=== PATIENT | female | born 2005 | race Caucasian/White ===

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

== ENCOUNTER 2023-03-03 02:39 | Emergency (ER) | payer BC, OTHER ==
[~2023-03-03] VITALS: Ht 157.5 cm; Wt 49.9 kg
[2023-03-03 02:45] VITALS: TEMP 98
[2023-03-03 05:41] VITALS: BP 108/73; O2SAT 99
== END 2023-03-03 05:41 | disposition home or self-care (01) ==
LOC: ER 02:40
DX: Z20.822 Contact with and (suspected) exposure to COVID-19 (principal); Z79.899 Other long term (current) drug therapy
CPT/HCPCS: 99283; 87426; 87804 ×2; 87880; 87420; A6403; C9803; 86403-TC

== ENCOUNTER 2023-09-29 00:29 | Emergency (ER) | payer BC ==
[~2023-09-29] VITALS: Ht 157.5 cm; Wt 54.4 kg
[2023-09-29 00:31] VITALS: BP 115/62; TEMP 98.1
[2023-09-29] MEDS ORDERED: DICYCLOMINE HCL 10 MG CAPSULE PO ONE ×2 (01:03→01:15)
[2023-09-29] MEDS: DICYCLOMINE HCL 10 MG CAPSULE PO ONE (01:18)
[2023-09-29] MEDS ORDERED: DICY10CA37 PO (02:37)
[2023-09-29 02:47] VITALS: O2SAT 99
== END 2023-09-29 02:48 | disposition home or self-care (01) ==
LOC: ER 00:48
DX: R10.9 Unspecified abdominal pain (principal); Z79.52 Long term (current) use of systemic steroids

== ENCOUNTER 2023-10-19 00:41 | Emergency (ER) | payer BC ==
[~2023-10-19] VITALS: Ht 157.5 cm; Wt 52.2 kg
[~2023-10-19 00:41] MED LIST changes: +DICY10CA37 PO
[2023-10-19 01:48] LABS: BASOPHILS # (AUTO) 0.1 K/uL (0.0-0.2); BASOPHILS % (AUTO) 1.1 % (0.0-2.0); EOSINOPHILS # (AUTO) 0.2 K/uL (0.0-0.7); EOSINOPHILS % (AUTO) 2.3 % (0.0-6.0); HEMATOCRIT 43 % (33-45); HEMOGLOBIN 14.3 g/dL (11.5-14.8); LYMPHOCYTES # (AUTO) 3.9 K/uL (0.8-4.8); LYMPHOCYTES % (AUTO) 49.1 % (20.0-44.0); MEAN CORPUSCULAR HEMOGLOBIN 30 PG (26.0-33.0); MEAN CORPUSCULAR HGB CONC 33 g/dl (31.0-36.0); MEAN CORPUSCULAR VOLUME 91 fL (82-100); MONOCYTES # (AUTO) 0.5 K/uL (0.1-1.30); MONOCYTES % (AUTO) 6.4 % (2.0-12.0); NEUTROPHILS # (AUTO) 3.3 K/uL (1.8-8.9); NEUTROPHILS % (AUTO) 41.1 % (43.0-81.0); PLATELET COUNT (AUTO) 238 K/uL (150-450); RED BLOOD CELL COUNT(AUTO) 4.73 MIL/uL (4.0-5.2); RED CELL DISTRIBUTION WIDTH 13.1 % (11.5-15.0); WHITE BLOOD COUNT (AUTO) 7.9 K/uL (4.3-11.0)
[2023-10-19 02:01] LABS: APPEARANCE,URINE CLEAR (CLEAR); BILIRUBIN,URINE NEGATIVE (NEGATIVE); BLOOD, URINE NEGATIVE Ery/uL (NEGATIVE); COLOR,URINE YELLOW (YELLOW); KETONES,URINE NEGATIVE (NEGATIVE); LEUKOCYTE ESTERASE ,URINE NEGATIVE (NEGATIVE); NITRITE, URINE NEGATIVE (NEGATIVE); PH,URINE 5.5 (5.0-8.0); PROTEIN,URINE NEGATIVE (NEGATIVE); UGLUCOSE NEGATIVE (NEGATIVE); UROBILINOGEN,URINE 0.2 EU/dL (0.2)
[2023-10-19 02:02] LABS: PREGNANCY TEST URINE QUAL NEGATIVE (NEGATIVE)
[2023-10-19 02:09] LABS: CALCIUM, SERUM 9.2 mg/dL (8.5-10.1); CREATININE 0.7 mg/dL (0.6-1.3); POTASSIUM 3.2 mmol/L (3.5-5.1)
[2023-10-19 02:14] LABS: ALBUMIN 3.7 g/dL (3.4-5.0); BILIRUBIN,DIRECT 0.1 mg/dL (0.0-0.2); BILIRUBIN,TOTAL 0.4 mg/dL (0.2-1.0); TOTAL PROTEIN, SERUM 7.4 g/dL (6.4-8.2)
[2023-10-19 04:20] VITALS: BP 116/72; TEMP 98; O2SAT 99
[2023-10-21 09:07] LABS: CHLAMYDIA TRACHOMATIS NAA Negative (Negative); NEISSERIA GONORRHOEAE NAA Negative (Negative)
== END 2023-10-19 05:19 | disposition home or self-care (01) ==
LOC: ER 00:43
DX: R10.30 Lower abdominal pain, unspecified (principal); R10.2 Pelvic and perineal pain
CPT/HCPCS: 36415; 76856-TC; 80048-TC; 80076-TC; 83690-TC; 84702-TC; 84703-TC; 85025-TC; 87086-TC; 87491; 87591

== ENCOUNTER → 2024-02-24 | Outpatient (CLI) | payer BC ==
[2024-02-24 09:55] LABS: APPEARANCE,URINE CLEAR (CLEAR); BILIRUBIN,URINE NEGATIVE (NEGATIVE); BLOOD, URINE NEGATIVE Ery/uL (NEGATIVE); COLOR,URINE YELLOW (YELLOW); KETONES,URINE NEGATIVE (NEGATIVE); LEUKOCYTE ESTERASE ,URINE NEGATIVE (NEGATIVE); NITRITE, URINE NEGATIVE (NEGATIVE); PROTEIN,URINE NEGATIVE (NEGATIVE); UGLUCOSE NEGATIVE (NEGATIVE); UROBILINOGEN,URINE 0.2 EU/dL (0.2)
[2024-02-24 09:56] LABS: BASOPHILS # (AUTO) 0.1 K/uL (0.0-0.2); BASOPHILS % (AUTO) 0.8 % (0.0-2.0); EOSINOPHILS # (AUTO) 0.2 K/uL (0.0-0.7); EOSINOPHILS % (AUTO) 2.5 % (0.0-6.0); HEMATOCRIT 43 % (33-45); HEMOGLOBIN 14.4 g/dL (11.5-14.8); LYMPHOCYTES # (AUTO) 2.7 K/uL (0.8-4.8); LYMPHOCYTES % (AUTO) 37.1 % (20.0-44.0); MEAN CORPUSCULAR HEMOGLOBIN 30 PG (26.0-33.0); MEAN CORPUSCULAR HGB CONC 34 g/dl (31.0-36.0); MEAN CORPUSCULAR VOLUME 90 fL (82-100); MONOCYTES # (AUTO) 0.5 K/uL (0.1-1.30); MONOCYTES % (AUTO) 6.8 % (2.0-12.0); NEUTROPHILS # (AUTO) 3.8 K/uL (1.8-8.9); NEUTROPHILS % (AUTO) 52.8 % (43.0-81.0); PLATELET COUNT (AUTO) 229 K/uL (150-450); RED BLOOD CELL COUNT(AUTO) 4.74 MIL/uL (4.0-5.2); RED CELL DISTRIBUTION WIDTH 12.9 % (11.5-15.0); WHITE BLOOD COUNT (AUTO) 7.2 K/uL (4.3-11.0)
[2024-02-24 13:00] LABS: ALBUMIN 4.1 g/dL (3.4-5.0); BILIRUBIN,TOTAL 0.4 mg/dL (0.2-1.0); CALCIUM, SERUM 8.7 mg/dL (8.5-10.1); CREATININE 0.9 mg/dL (0.6-1.3); POTASSIUM 3.7 mmol/L (3.5-5.1); TOTAL PROTEIN, SERUM 7.5 g/dL (6.4-8.2)
[2024-02-24 13:59] LABS: HIV-1 p24 ANTIGEN NON REACTIVE (NONREACTIVE); HIV-1/2 ANTIBODY NON REACTIVE (NONREACTIVE)
[2024-02-24 22:19] LABS: THYROID STIMULATING HORMONE 4.205 uIU/mL (0.358-3.74)
[2024-02-25 09:07] LABS: RAPID PLASMA REAGIN QUAL. Non Reactive (Non Reactive)
[2024-02-25 17:09] LABS: CHLAMYDIA TRACHOMATIS NAA Negative (Negative); NEISSERIA GONORRHOEAE NAA Negative (Negative)
[2024-02-28 00:15] LABS: FOLIC ACID 14.4 ng/mL (>3.0); VIT D, 25-HYDROXY 21.4 ng/mL (30.0-100.0)
== END | disposition home or self-care (01) ==
LOC: LAB 09:02
PROVIDERS: ATTEND Legal Medicine
DX: Z11.3 Encounter for screening for infections with a predominantly sexual mode of transmission (principal); E11.9 Type 2 diabetes mellitus without complications; E03.9 Hypothyroidism, unspecified; D64.9 Anemia, unspecified; R53.1 Weakness; I10 Essential (primary) hypertension
CPT/HCPCS: 36415; 80053-TC; 80061-TC; 82306; 82607-TC; 82728-TC; 83540-TC; 84439-TC; 84443-TC; 85025-TC; 86592; 86593; 86803; 87086-TC; 87491; 87591; 87806

== ENCOUNTER 2024-06-06 01:22 | Emergency (ER) | payer BC ==
[~2024-06-06] VITALS: Ht 157.5 cm; Wt 51.3 kg
[~2024-06-06 01:22] MED LIST changes: +CEPH-570 PO
[2024-06-06 01:31] VITALS: BP 122/74; TEMP 98.6; O2SAT 99
[2024-06-06 02:12] LABS: APPEARANCE,URINE CLOUDY (CLEAR); BILIRUBIN,URINE 1+ (NEGATIVE); BLOOD, URINE 3+ Ery/uL (NEGATIVE); COLOR,URINE YELLOW (YELLOW); KETONES,URINE TRACE mg/dL (NEGATIVE); LEUKOCYTE ESTERASE ,URINE 1+ (NEGATIVE); NITRITE, URINE POSITIVE (NEGATIVE); PROTEIN,URINE 3+ mg/dl (NEGATIVE); UGLUCOSE NEGATIVE (NEGATIVE)
[2024-06-06] MEDS ORDERED: PHENAZOPYRIDINE HCL 200 MG TABLET ONE (02:17)
[2024-06-06] MEDS: PHENAZOPYRIDINE HCL 200 MG TABLET PO ONE (02:17)
[2024-06-06] MEDS ORDERED: NITR100C6 PO (02:35)
[2024-06-06] MEDS ORDERED: FLUC150T PO (02:36)
[2024-06-06] MEDS ORDERED: NITROFURANTOIN/MONOHYDRATE MACROCRYSTALS 100 MG CAPSULE ONE (02:36)
[2024-06-06] MEDS ORDERED: PHEN-705 PO (02:36)
[2024-06-06] MEDS: NITROFURANTOIN/MONOHYDRATE MACROCRYSTALS 100 MG CAPSULE PO ONE (02:36)
[2024-06-06] MEDS ORDERED: CEPH500C2 PO (02:36)
[2024-06-06 02:38] LABS: ADD URINE CULTURE YES; BACTERIA,URINE Few /HPF (None Seen); RBC,URINE 51-80 /HPF (0-2)
[2024-06-06 02:46] LABS: PREGNANCY TEST URINE QUAL NEGATIVE (NEGATIVE)
== END 2024-06-06 02:52 | disposition home or self-care (01) ==
LOC: ER 01:24
DX: N39.0 Urinary tract infection, site not specified (principal); R10.30 Lower abdominal pain, unspecified; Z79.52 Long term (current) use of systemic steroids
CPT/HCPCS: 81001; 84703-TC; 87086-TC; 87186-TC

== ENCOUNTER 2024-06-11 04:12 | Emergency (ER) | payer BC ==
[~2024-06-11] VITALS: Ht 157.5 cm; Wt 54.0 kg
[~2024-06-11 04:12] MED LIST changes: +CEPH500C2 PO; +FLUC150T PO; +NITR100C6 PO; +PHEN-705 PO
[2024-06-11] MEDS ORDERED: ONDANSETRON HCL/PF 4 MG/2 ML VIAL ONE ×2 (04:27→05:40)
[2024-06-11] MEDS ORDERED: KETOROLAC TROMETHAMINE INJ 30 MG/ML VIAL ONE (04:27)
[2024-06-11] MEDS: IV NS 0.9% 1,000 ML BAG IV ONE (04:39)
[2024-06-11] MEDS: KETOROLAC TROMETHAMINE 15 MG/ML VIAL IV ONE (04:40)
[2024-06-11] MEDS: ONDANSETRON HCL/PF 4 MG/2 ML VIAL IVP ONE (04:40)
[2024-06-11 04:43] LABS: BASOPHILS # (AUTO) 0.1 K/uL (0.0-0.2); BASOPHILS % (AUTO) 0.6 % (0.0-2.0); EOSINOPHILS # (AUTO) 0.1 K/uL (0.0-0.7); EOSINOPHILS % (AUTO) 0.6 % (0.0-6.0); HEMATOCRIT 45 % (33-45); HEMOGLOBIN 15.1 g/dL (11.5-14.8); LYMPHOCYTES # (AUTO) 2.1 K/uL (0.8-4.8); LYMPHOCYTES % (AUTO) 17.4 % (20.0-44.0); MEAN CORPUSCULAR HEMOGLOBIN 30 PG (26.0-33.0); MEAN CORPUSCULAR HGB CONC 34 g/dl (31.0-36.0); MEAN CORPUSCULAR VOLUME 89 fL (82-100); MONOCYTES # (AUTO) 0.8 K/uL (0.1-1.30); MONOCYTES % (AUTO) 6.3 % (2.0-12.0); NEUTROPHILS # (AUTO) 9.2 K/uL (1.8-8.9); NEUTROPHILS % (AUTO) 75.1 % (43.0-81.0); PLATELET COUNT (AUTO) 265 K/uL (150-450); RED BLOOD CELL COUNT(AUTO) 5.07 MIL/uL (4.0-5.2); RED CELL DISTRIBUTION WIDTH 12.7 % (11.5-15.0); WHITE BLOOD COUNT (AUTO) 12.3 K/uL (4.3-11.0)
[2024-06-11] MEDS ORDERED: LEVOFLOXACIN 500 MG /D5W 100ML 100 ML IV ONE (04:50)
[2024-06-11 04:51] LABS: CALCIUM, SERUM 9.4 mg/dL (8.5-10.1); CREATININE 0.7 mg/dL (0.6-1.3); POTASSIUM 3.6 mmol/L (3.5-5.1)
[2024-06-11 04:57] LABS: ALBUMIN 4.4 g/dL (3.4-5.0); BILIRUBIN,DIRECT 0.2 mg/dL (0.0-0.2); BILIRUBIN,TOTAL 0.7 mg/dL (0.2-1.0); TOTAL PROTEIN, SERUM 7.8 g/dL (6.4-8.2)
[2024-06-11] MEDS: LEVOFLOXACIN 500 MG /D5W 100ML 500 MG/100 ML PIGGYBACK IV ONE (05:05)
[2024-06-11] MEDS ORDERED: LEVO500T90 PO (05:38)
[2024-06-11] MEDS: ONDANSETRON HCL/PF 4 MG/2 ML VIAL IV ONE (05:43)
[2024-06-11] MEDS ORDERED: SORB30SO2 PO (06:05)
[2024-06-11] MEDS ORDERED: ONDA4TAB5 PO (06:05)
[2024-06-11 07:50] VITALS: BP 126/88; TEMP 97.8; O2SAT 99
== END 2024-06-11 07:51 | disposition home or self-care (01) ==
LOC: ER 04:13
DX: N12 Tubulo-interstitial nephritis, not specified as acute or chronic (principal); Z79.52 Long term (current) use of systemic steroids; Z87.440 Personal history of urinary (tract) infections
CPT/HCPCS: 99285; 74176; 96365; 96375; 96376; 85025; 80048; 87040 ×2; 83605; 83690; 80076; 36415; J1885; J2405 ×2; J7030; J1956

== ENCOUNTER 2025-02-14 00:20 | Emergency (ER) | payer BC ==
[~2025-02-14] VITALS: Ht 157.5 cm; Wt 54.4 kg
[~2025-02-14 00:20] MED LIST changes: +LEVO500T90 PO; +ONDA4TAB5 PO; +SORB30SO2 PO
--- NOTE | 2025-02-14 00:27 | NUR ---
BIBS FOR GEN RASHES, H/A AND ITCHY THROAT TOOK 50 MG BENADRYL [employer] OPERATIONS AND MAINTENANCE. PT A/OX4. TOLERATING R/A WELL WITH NO RESP DISTRESS. SAFETY MEASURES IN PLACE.
[2025-02-14] MEDS ORDERED: EPINEPHRINE (1:1000) 1 MG/ML AMPUL ONE (00:41)
[2025-02-14] MEDS ORDERED: ONDANSETRON HCL/PF 4 MG/2 ML VIAL ONE (00:41)
[2025-02-14] MEDS: EPINEPHRINE (1:1000) 1 MG/ML AMPUL SUBCUT ONE (00:49)
[2025-02-14] MEDS: ONDANSETRON HCL/PF 4 MG/2 ML VIAL IVP ONE (00:49)
[2025-02-14] MEDS: IV NS 0.9% 1,000 ML BAG IV ONE (00:49)
[2025-02-14] MEDS ORDERED: DIPH50CA4 PO (01:42)
[2025-02-14] MEDS ORDERED: EPIN0.3P3 IM (01:42)
[2025-02-14] MEDS ORDERED: FAMO20TA80 PO (01:42)
[2025-02-14] MEDS ORDERED: PRED50TA PO (01:42)
[2025-02-14 07:22] VITALS: BP 105/65; TEMP 98; O2SAT 98
--- NOTE | 2025-02-14 07:22 | NUR ---
Patient discharged to home in stable condition. Written and verbal after care instructions given. Patient verbalizes understanding of instruction.
== END 2025-02-14 07:23 | disposition home or self-care (01) ==
LOC: ER 00:22
DX: L50.9 Urticaria, unspecified (principal); T78.40XA Allergy, unspecified, initial encounter; Z79.52 Long term (current) use of systemic steroids; Y92.89 Other specified places as the place of occurrence of the external cause
CPT/HCPCS: 99285; 96374; 96361; 96375; 96372; J2919; J0169; J2405